=== PATIENT | female | born 1965 | race African-American/Black ===

== ENCOUNTER 2021-04-03 08:56 | Outpatient (CLI) | payer OTHER | END 2021-04-03 08:57 | disposition home or self-care (01) | LOC: BICMAMMO 08:56 | PROVIDERS: ATTEND Physician Assistant | DX: Z12.31 Encounter for screening mammogram for malignant neoplasm of breast (principal); Z80.3 Family history of malignant neoplasm of breast | CPT/HCPCS: 77063; 77067 ==